=== PATIENT | male | born 1960 | race Caucasian/White ===

== ENCOUNTER 2017-02-13 17:25 | Emergency (ER) | payer MEDICAID, OTHER ==
--- NOTE | 2017-02-13 20:33 | RAD ---
Indication: Headaches, hemorrhage. CT of the brain was performed without IV contrast. Ventricular structures are midline. No midline shift is noted. The extraction spaces are unremarkable. There is no evidence of intracranial mass or hemorrhage. No other high or low density lesions are identified. Prominent sella turcica is noted which is unchanged from prior exam. IMPRESSION: No intracranial mass or hemorrhage is noted.
[2017-02-13 20:54] LABS: Hematocrit 35 % (42-52); Hemoglobin 11.6 g/dl (14.0-18.0); Mean Corpuscular HGB Conc 34 g/dl (31-36); Mean Corpuscular Hemoglobin 30 pg (27-31); Mean Corpuscular Volume 88 fL (80-94); Mean Platelet Volume 9 um3 (7.4-10.4); Red Blood Count 3.94 10^6/ul (4.0-5.4); Red Cell Distribution Width 13 % (10.5-15); White Blood Count 7.9 10^3/ul (3.5-10.8)
[2017-02-13] MEDS ORDERED: Ketorolac INJ* 30 MG/ML 1 ML VIAL IV PUSH ONE (21:03)
[2017-02-13] MEDS ORDERED: NS 0.9% 1000 ML* 1,000 ML IV ONE (21:03)
[2017-02-13] MEDS ORDERED: Metoclopramide IV* 5 MG/ML 2 ML VIAL IV ONE (21:03)
[2017-02-13] MEDS ORDERED: diPHENhydraMINE IV* 50 MG/ML 1 ml VIAL (BENADRYL) IV ONE (21:04)
--- NOTE | 2017-02-13 21:05 | ED ---
Teri John Alfonso, scribed for Walt Finn MD on 02/13/17 at 1943 . Headache - HPI Summary HPI Summary: This patient is a 56 year old M presenting to [facility] with a chief complaint of headache since two days ago. The headache is worse as of today. He states it feels like someone is standing on my noggin. The patient rates the pain 10/10 in severity. Symptoms aggravated by bright light. Symptoms alleviated by nothing. Patient reports photophobia, chills, sinus congestion, nausea, and tiredness. Patient denies occipital pain, neck pain, fever, slurred speech, and weakness. PMHx of anemia and asthma. Pt offered IV fluids, analgesia, and antiemetic, but he denied. - History Of Current Complaint Chief Complaint: EDHeadache Stated Complaint: HEADACHE/TIRED/CONFUSION Time Seen by Provider: 02/13/17 19:38 Hx Obtained From: Patient Onset/Duration: Sudden Onset, Started days ago - 2, Still Present Initially Headache Was: Moderate Currently Pain Is: Current Pain Scale(0-10)= - 10/10, Severe Timing: Constant, Days - 2 Character: Pressure - it feels like someone is standing on my noggin. Aggravating Factor: Bright Lights Allevating Factors: Nothing Associated Signs And Symptoms: Other (Noted In Comments) - Patient reports photophobia, chills, sinus congestion, nausea, and tiredness. Patient denies occipital pain, neck pain, fever, slurred speech, and weakness. - Allergies/Home Medications Allergies/Adverse Reactions: Allergies Allergy/AdvReac Type Severity Reaction Status Date / Time No Known Allergies Allergy Verified 02/13/17 17:29 PMH/Surg Hx/FS Hx/Imm Hx Endocrine/Hematology History: Reports: Hx Anemia Denies: Hx Diabetes, Hx Systemic Lupus Erythematosus Cardiovascular History: Denies: Hx Congestive Heart Failure, Hx Hypertension, Hx Pacemaker/ICD Respiratory History: Reports: Hx Asthma - CHRONIC BRONCHITIS History: Denies: Hx Dialysis, Hx Renal Disease Musculoskeletal History: Denies: Hx Rheumatoid Arthritis Sensory History: Denies: Hx Hearing Aid Psychiatric History: Denies: Hx Panic Disorder - Cancer History Hx Chemotherapy: No - Surgical History Surgery Procedure, Year, and Place: T&A Infectious Disease History: No Infectious Disease History: Denies: Traveled Outside the [place] in Last 30 Days - Family History Known Family History: Positive: Diabetes - Sister - Social History Alcohol Use: None Hx Substance Use: No Substance Use Type: Reports: None Hx Tobacco Use: No Smoking Status (MU): Never Smoked Tobacco Review of Systems Positive: Chills. Negative: Fever Positive: Photophobia, Other - Negative occipital pain Positive: Other - sinus congestion Positive: Nausea Positive: Other - Negative neck pain Neurological: Other - tiredness, headache; slurred speech, and weakness All Other Systems Reviewed And Are Negative: Yes Physical Exam - Summary Physical Exam Summary: The patient is well-nourished in no acute distress and in no acute pain. The skin is warm and dry and skin color reflects adequate perfusion. HEENT: The head is normocephalic and atraumatic. The pupils are equal and reactive. The conjunctivae are clear and without drainage. Photophobic. Nares are patent and without drainage. No sinus tenderness to percussion. The external ears are intact. The ear canals are patent and without drainage. The tympanic membranes are intact. Neck is supple with full range of motion and non-tender. There are no carotid bruits. There is no neck vein distension. Neck pain with flection at C7-T1. No nuchal rigidity. Respiratory: Chest is non-tender. Lungs are clear to auscultation and breath sounds are symmetrical and equal. Cardiovascular: Heart is regular rate and rhythm. There is no murmur or rub auscultated. Pulses are symmetrical and equal. Abdomen: The abdomen is soft and non-tender. There are normal bowel sounds heard in all four quadrants and there is no organomegaly palpated. Musculoskeletal: There is no back pain noted. Extremities are non-tender with full range of motion. There is good capillary refill. There is no peripheral edema or calf tenderness elicited. Neurological: Patient is alert and oriented to person, place and time. The patient has symmetrical motor strength in all four extremities. Cranial nerves are grossly intact. Deep tendon reflexes are symmetrical and equal in all four extremities. Symmetrical motor strength. Psychiatric: The patient has an appropriate affect and does not exhibit any anxiety or depression. Triage Information Reviewed: Yes Vital Signs On Initial Exam: Initial Vitals Temp Pulse Resp BP Pulse Ox 97.8 F 65 16 121/77 96 02/13/17 17:29 02/13/17 17:29 02/13/17 17:29 02/13/17 17:29 02/13/17 17:29 Vital Signs Reviewed: Yes - [place] Coma Scale Coma Scale Total: 15 Diagnostics - Vital Signs Vital Signs Temp Pulse Resp BP Pulse Ox 02/13/17 19:00 63 106/62 94 02/13/17 18:30 64 104/65 96 02/13/17 18:00 61 112/76 96 02/13/17 17:53 97.8 F 65 16 121/77 96 02/13/17 17:43 64 96 02/13/17 17:41 124/75 02/13/17 17:29 97.8 F 65 16 121/77 96 - Laboratory Lab Results: Lab Results 02/13/17 02/13/17 Range/Units 20:37 20:37 WBC 7.9 (3.5-10.8) 10^3/ul RBC 3.94 L (4.0-5.4) 10^6/ul Hgb 11.6 L (14.0-18.0) g/dl Hct 35 L (42-52) % MCV 88 (80-94) fL MCH 30 (27-31) pg MCHC 34 (31-36) g/dl RDW 13 (10.5-15) % Plt Count 244 (150-450) 10^3/ul MPV 9 (7.4-10.4) um3 Neut % (Auto) 51.7 (38-83) % Lymph % (Auto) 28.9 (25-47) % [place] % (Auto) 6.5 (1-9) % Eos % (Auto) 10.8 H (0-6) % Baso % (Auto) 2.1 H (0-2) % Absolute Neuts (auto) 4.1 (1.5-7.7) 10^3/ul Absolute Lymphs (auto) 2.3 (1.0-4.8) 10^3/ul Absolute Monos (auto) 0.5 (0-0.8) 10^3/ul Absolute Eos (auto) 0.9 H (0-0.6) 10^3/ul Absolute Basos (auto) 0.2 (0-0.2) 10^3/ul Absolute Nucleated RBC 0 10^3/ul Nucleated RBC % 0 INR (Anticoag Therapy) 0.94 (0.89-1.11) Result Diagrams: 02/13/17 20:37 Lab Statement: Any lab studies that have been ordered have been reviewed, and results considered in the medical decision making process. - CT Brain CT Interpretation Completed By: Radiologist - No intracranial mass or hemorrhage is noted. ED physician has reviewed this radiology report and agrees. Re-Evaluation - Re-Evaluation First Eval Re-Evaluation Time: 20:54 Comment: Pt still has a headache. He still declines medication. Brad CT results reviewed with the patient. Second Eval Re-Evaluation Time: 21:01 Comment: Patient now states he would like IV fluids and medication. Headache Course/Dx - Course Assessment/Plan: This patient is a 56 year old M presenting to [facility] with a chief complaint of headache since two days ago. The headache is worse as of today. He states it feels like someone is standing on my noggin. The patient rates the pain 10/10 in severity. Symptoms aggravated by bright light. Symptoms alleviated by nothing. Patient reports photophobia, chills, sinus congestion, nausea, and tiredness. Patient denies occipital pain, neck pain, fever, slurred speech, and weakness. PMHx of anemia and asthma. Pt offered IV fluids, analgesia , and antiemetic, but he denied. CT Brain reveals No intracranial mass or hemorrhage is noted. ED physician has reviewed this radiology report and agrees. Patient will be discharged with follow up from PCP. The patient is agreeable with this plan. - Diagnoses Differential Diagnosis/HQI/PQRI: Migraine, Subarachnoid Hemorrhage, Tension Headache Provider Diagnoses: Headache Discharge - Discharge Plan Condition: Stable Disposition: HOME Patient Education Materials: Acute Headache (ED) Referrals: [facility] PHYSICIAN REFERRAL [Outside] - 3 Days The documentation as recorded by the Teri hewitt Alfonso accurately reflects the service I personally performed and the decisions made by me, Walt Finn MD.
[2017-02-13 21:06] LABS: BUN/Creatinine Ratio 22.9 (8-20); Calcium 9.1 mg/dL (8.6-10.3); EGFR Non-African American 81.6 (>60); Globulin 2.8 g/dL (2-4); Potassium 4.1 mmol/L (3.5-5.0); Total Bilirubin 0.6 mg/dL (0.2-1.0); Total Protein 6.8 g/dL (6.4-8.9)
[2017-02-14 01:50] VITALS: BP 96/54
== END 2017-02-14 01:50 | disposition home or self-care (01) ==
LOC: ED 17:25
DX: R51 Headache (principal); J44.9 Chronic obstructive pulmonary disease, unspecified
CPT/HCPCS: 36415; 70450; 80053; 82607; 83605; 85025; 85610; 96360; 96374; 96375; 99283; J1200; J1885; J2765

== ENCOUNTER 2017-08-07 14:27 | Emergency (ER) | payer MEDICAID ==
[2017-08-07] MEDS ORDERED: PROCHLORPERAZINE INJ 5 MG/ML 2 ML VIAL IV ONE (14:56)
[2017-08-07] MEDS ORDERED: diPHENhydraMINE IV* 50 MG/ML 1 ml VIAL (BENADRYL) IV ONE (14:56)
[2017-08-07] MEDS ORDERED: NS 0.9% 1000 ML* 2,000 ML IV ONE (14:56)
--- NOTE | 2017-08-07 15:13 | ED ---
Influenza-Like Illness - HPI Summary HPI Summary: 57-year-old male presents with fatigue, headache, and generalized abdominal pain for the past couple days. He stated started after he exposed to mold. He states this is not the worst headache of his life. He states it is a generalized headache. He has not taken anything for his headache. He states he has been really nauseous and has been vomiting. He has not been able to keep anything down. He admits to shortness of breath and a cough. He denies any chest pain. He admits to sinus congestion but denies any sore throat. He states he feels very weak. He states he has never had this before. He has history of chronic bronchitis. He states his illness is making the chronic bronchitis worse. He has not taken anything for symptoms. He denies any diarrhea. He denies any one else being sick. He states he had concussion three years ago that has persisted. He does not have a primary. - History of Current Complaint Chief Complaint: EDGeneral Time Seen by Provider: 08/07/17 14:34 - Allergy/Home Medications Allergies/Adverse Reactions: Allergies Allergy/AdvReac Type Severity Reaction Status Date / Time No Known Allergies Allergy Verified 02/13/17 17:29 PMH/Surg Hx/FS Hx/Imm Hx Endocrine/Hematology History: Reports: Hx Anemia Denies: Hx Diabetes, Hx Systemic Lupus Erythematosus Cardiovascular History: Denies: Hx Congestive Heart Failure, Hx Hypertension, Hx Pacemaker/ICD Respiratory History: Reports: Hx Asthma - CHRONIC BRONCHITIS History: Denies: Hx Dialysis, Hx Renal Disease Musculoskeletal History: Denies: Hx Rheumatoid Arthritis Sensory History: Denies: Hx Hearing Aid Psychiatric History: Denies: Hx Panic Disorder - Cancer History Hx Chemotherapy: No - Surgical History Surgery Procedure, Year, and Place: T&A Infectious Disease History: No Infectious Disease History: Denies: Traveled Outside the [place] in Last 30 Days - Family History Known Family History: Positive: None, Diabetes - Sister Family History: R & n/C - Social History Alcohol Use: None Hx Substance Use: No Substance Use Type: Reports: None Hx Tobacco Use: No Smoking Status (MU): Never Smoked Tobacco Review of Systems Positive: Chills, Fatigue. Negative: Fever Negative: Chest Pain Positive: Shortness Of Breath, Cough Positive: Abdominal Pain, Vomiting, Nausea. Negative: Diarrhea Positive: Headache All Other Systems Reviewed And Are Negative: Yes Physical Exam Triage Information Reviewed: Yes Vital Signs On Initial Exam: Initial Vitals Temp Pulse Resp BP Pulse Ox 97 F 67 18 120/70 95 08/07/17 14:31 08/07/17 14:31 08/07/17 14:31 08/07/17 14:31 08/07/17 14:31 Vital Signs Reviewed: Yes Appearance: Positive: Well-Appearing Skin: Positive: Warm, Dry Head/Face: Positive: Normal Head/Face Inspection Eyes: Positive: Normal, EOMI, ARETHA, Conjunctiva Clear ENT: Positive: Normal ENT inspection, Pharynx normal, TMs normal Neck: Negative: Nuchal Rigidity Respiratory/Lung Sounds: Positive: Clear to Auscultation, Breath Sounds Present Cardiovascular: Positive: Normal, RRR Abdomen Description: Positive: Soft, Other: - moderate diffuse tenderness Bowel Sounds: Positive: Present Musculoskeletal: Positive: Normal Neurological: Positive: Sensory/Motor Intact, Alert, Oriented to Person Place, Time, CN Intact II-III - [place] Coma Scale Best Eye Response: 4 - Spontaneous Best Motor Response: 6 - Obeys Commands Best Verbal Response: 5 - Oriented Coma Scale Total: 15 Diagnostics - Vital Signs Vital Signs Temp Pulse Resp BP Pulse Ox 08/07/17 14:31 97 F 67 18 120/70 95 - Laboratory Lab Results: Lab Results 08/07/17 Range/Units 14:48 Influenza A (Rapid) Negative (Negative) Influenza B (Rapid) Negative (Negative) Result Diagrams: 08/07/17 15:06 08/07/17 15:06 Lab Statement: Any lab studies that have been ordered have been reviewed, and results considered in the medical decision making process. - Radiology chest Xray Interpretation: Positive (See Comments) - IMPRESSION: SMALL RIGHT UPPER LOBE INFILTRATE, RECOMMEND FOLLOW-UP CHEST X-RAYS TO RESOLUTION. Radiology Interpretation Completed By: Radiologist - CT brain CT Interpretation: Positive (See Comments) - 1. No acute intracranial abnormalities. 2. There is a slow-growing mixed attenuation mostly fat density mass at the pituitary gland. 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 This mass has been present since at least the October 13, 2014 CT the brain. More complete characterization can be made with contrast- enhanced MRI of the brain on a nonemergent basis. CT Interpretation Completed By: Radiologist - EKG No standard instances Cardiac Rate: NL EKG Rhythm: Sinus Rhythm ST Segment: Normal EKG Interpretation: sinus rhythmn EKG Comparison: No Significant Change Re-Evaluation - Re-Evaluation First Eval Re-Evaluation Time: 17:14 Change: Unchanged Comment: still has headache but nausea better Second Eval Re-Evaluation Time: 17:30 Change: Improved Comment: feeling better and would like to go home Flu Symptom Course/Dx - Course Course Of Treatment: 57-year-old male presents with fatigue, headache, and generalized abdominal pain for the past couple days. He stated started after he exposed to mold. He states this is not the worst headache of his life. He states it is a generalized headache. He has not taken anything for his headache. He states he has been really nauseous and has been vomiting. He has not been able to keep anything down. He admits to shortness of breath and a cough. He denies any chest pain. He admits to sinus congestion but denies any sore throat. He states he feels very weak. He states he has never had this before. He has history of chronic bronchitis. He states his illness is making the chronic bronchitis worse. On exam normal neuro exam. Lungs clear to auscultation. Moderate tenderness diffusely on abdomen. Patient appears ill. Flu negative. White blood cell count normal. EKG normal. troponin neg. bnp neg. crp normal. Chest x-ray shows infiltrate. Brain CT shows slow-growing mass. Discussed case with Dr. Napier will have follow-up with oncology at does not have a primary. Will treat pneumonia with Levaquin. Will give nausea medication. patient feeling better. will discharge home as labs normal except Na which corrected with IV fluids. patient understand and agrees with plan. - Diagnoses Differential Diagnosis/HQI/PQRI: Positive: Influenza, Upper Respiratory Infection Provider Diagnoses: Headache, Vomiting, Abdominal pain, Pneumonia, Brain mass Discharge - Discharge Plan Condition: Good Disposition: HOME Prescriptions: Levofloxacin TAB* [Levaquin TAB*] 500 mg PO DAILY #6 tab Ondansetron ODT TAB* [Zofran 4 MG Odt TAB*] 4 mg PO Q6H PRN #16 tab.odt PRN Reason: Nausea Patient Education Materials: Pneumonia (ED) Referrals: Eddie Fortune MD [Medical Doctor] - [facility] [facility] REFERRAL [Outside] Additional Instructions: Take antibiotic once a day for 7 days Follow up with oncology about brain mass Take tyenlol for headache every 6 hours Use zofran every 6 hours for nausea Establish care with primary to follow up Return to ED if develop any new or worsening symptoms
[2017-08-07 15:20] LABS: ABS Basophils 0.1 10^3/ul (0-0.2); ABS Lymphocytes 1.4 10^3/ul (1.0-4.8); ABS Monocytes 0.5 10^3/ul (0-0.8); ABS Neutrophils 4.5 10^3/ul (1.5-7.7); ABS Nucleated RBC 0 10^3/ul; Hematocrit 37 % (42-52); Hemoglobin 12.7 g/dl (14.0-18.0); Lymphocyte % 18.7 % (25-47); Mean Corpuscular HGB Conc 34 g/dl (31-36); Mean Corpuscular Hemoglobin 30 pg (27-31); Mean Corpuscular Volume 86 fL (80-94); Mean Platelet Volume 9 um3 (7.4-10.4); Nucleated Red Blood Cells % 0.1; Platelet Count 237 10^3/ul (150-450); Red Cell Distribution Width 14 % (10.5-15); White Blood Count 7.4 10^3/ul (3.5-10.8)
[2017-08-07 15:36] LABS: EGFR Non-African American 82.3 (>60)
--- NOTE | 2017-08-07 16:27 | RAD ---
INDICATION: Shortness of breath. COMPARISON: Comparison is made with a prior study from September 10, 2015. TECHNIQUE: Dual-energy PA and lateral views of the chest were obtained. FINDINGS: The heart is within normal limits in size. Mediastinal and hilar contours appear within normal limits. There is a small patchy right upper lobe infiltrate. The lungs are otherwise clear. No pleural effusion is seen. IMPRESSION: SMALL RIGHT UPPER LOBE INFILTRATE, RECOMMEND FOLLOW-UP CHEST X-RAYS TO RESOLUTION.
[2017-08-07] MEDS ORDERED: Levofloxacin TAB* 500 MG PO ONE (16:32)
--- NOTE | 2017-08-07 16:33 | RAD ---
INDICATION: Headache and flulike symptoms COMPARISON: Most recent CT the brain February 13, [address] of the brain is October 13, 2014 TECHNIQUE: Contiguous axial sections of the brain were obtained from the skull base to the vertex without contrast. FINDINGS: The ventricles, cisterns and sulci are within normal limits. At the sella turcica at the expected location of the pituitary gland there is a mixed attenuation mass measuring 1.9 x 2.3 cm in the axial plane (image 7) and up to 2.4 cm in the cephalocaudal dimension (sagittal image 38). On the sagittal plane images much of the anterior aspect of the mass is low density consistent with fat. There is thinning and expansion of the surrounding sella turcica indicating slow growth. On the October 13, 2014 CT examination this mass measured 1.6 x 2 cm in the axial plane. The boswell-white matter differentiation is adequately maintained and there is no sulcal effacement. No significant focal abnormality or mass effect is present. There is no evidence for intracranial hemorrhage. No significant focal osseous abnormality is present. The visualized portion of the paranasal sinuses appear clear. The mastoid air cells are well aerated bilaterally. IMPRESSION: 1. No acute intracranial abnormalities. 2. There is a slow-growing mixed attenuation mostly fat density mass at the pituitary gland. 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 This mass has been present since at least the October 13, 2014 CT the brain. More complete characterization can be made with contrast-enhanced MRI of the brain on a nonemergent basis. Findings discussed with Dr. Napier over the telephone at 1629 hours on August 07, 2017.
[2017-08-07] MEDS ORDERED: Ketorolac INJ* 30 MG/ML 1 ML VIAL IV PUSH ONE (16:58)
[2017-08-07 17:15] LABS: Urine Appearance Clear; Urine Blood Negative (Negative); Urine Color Yellow; Urine Ketones 1+ (Negative); Urine Protein Negative (Negative); Urine Specific Gravity 1.012 (1.010-1.030); Urine Urobilinogen Negative (Negative)
[2017-08-07 17:51] VITALS: BP 128/80
== END 2017-08-07 18:00 | disposition home or self-care (01) ==
LOC: ED 14:27
DX: J18.9 Pneumonia, unspecified organism (principal); G93.9 Disorder of brain, unspecified; R51 Headache; R11.10 Vomiting, unspecified; R10.9 Unspecified abdominal pain
CPT/HCPCS: 36415; 70450; 71046; 80053; 81003; 83605; 83690; 83735; 83880; 84484; 85025; 86141; 87502; 93005; 96374; 96375; 99283; J0780; J1200; J1885

== ENCOUNTER 2017-08-14 17:45 | Emergency (ER) | payer MEDICAID ==
[2017-08-14] MEDS ORDERED: Metoclopramide IV* 5 MG/ML 2 ML VIAL IV SLOW PU ONE (23:24)
[2017-08-14] MEDS ORDERED: diPHENhydraMINE IV* 50 MG/ML 1 ml VIAL (BENADRYL) IV ONE (23:24)
[2017-08-14] MEDS ORDERED: Ketorolac INJ* 30 MG/ML 1 ML VIAL IV PUSH ONE (23:24)
[2017-08-14] MEDS ORDERED: NS 0.9% 1000 ML* 1,000 ML IV ONE (23:24)
--- NOTE | 2017-08-15 00:51 | ED ---
Garry John Angela, scribed for Sergio Whitmore MD on 08/14/17 at 2336 . Headache - HPI Summary HPI Summary: This pt is a 57 y/o male presenting to [facility] c/o headache today. Pt reports "I feel like someone is standing and dancing on my head." Pt notes he had the same symptoms one week ago, but states it is worse today. He describes his headache is located on top of his head. He reports vomiting, photophobia. Pt has not taken any pain medications today. He denies any PMHx. - History Of Current Complaint Chief Complaint: EDHeadache Stated Complaint: HEADACHE Time Seen by Provider: 08/14/17 23:12 Hx Obtained From: Patient Onset/Duration: Started hours ago, Still Present Location of Headache: Other: - top of head Aggravating Factor: Bright Lights Allevating Factors: Nothing Associated Signs And Symptoms: Nausea, Vomiting - Allergies/Home Medications Allergies/Adverse Reactions: Allergies Allergy/AdvReac Type Severity Reaction Status Date / Time No Known Allergies Allergy Verified 02/13/17 17:29 PMH/Surg Hx/FS Hx/Imm Hx Endocrine/Hematology History: Reports: Hx Anemia Denies: Hx Diabetes, Hx Systemic Lupus Erythematosus Cardiovascular History: Denies: Hx Congestive Heart Failure, Hx Hypertension, Hx Pacemaker/ICD Respiratory History: Reports: Hx Asthma - CHRONIC BRONCHITIS History: Denies: Hx Dialysis, Hx Renal Disease Musculoskeletal History: Denies: Hx Rheumatoid Arthritis Sensory History: Denies: Hx Hearing Aid Psychiatric History: Denies: Hx Panic Disorder - Cancer History Hx Chemotherapy: No - Surgical History Surgery Procedure, Year, and Place: T&A Infectious Disease History: No Infectious Disease History: Denies: Traveled Outside the [place] in Last 30 Days - Family History Known Family History: Positive: Diabetes - Sister - Social History Alcohol Use: None Hx Substance Use: No Substance Use Type: Reports: None Hx Tobacco Use: No Smoking Status (MU): Never Smoked Tobacco Review of Systems Negative: Fever, Chills Positive: Photophobia ENT: Negative Cardiovascular: Negative Respiratory: Negative Positive: Vomiting, Nausea Genitourinary: Negative Positive: Headache All Other Systems Reviewed And Are Negative: Yes Physical Exam - Summary Physical Exam Summary: VITAL SIGNS: Reviewed. GENERAL: Patient is a well-developed and nourished male who is lying comfortable in the stretcher. Patient is not in any acute respiratory distress. HEAD AND FACE: No signs of trauma. No ecchymosis, hematomas or skull depressions. No sinus tenderness. EYES: PERRLA, EOMI x 2, No injected conjunctiva, no nystagmus. Pt has photophobia. EARS: Hearing grossly intact. Ear canals and tympanic membranes are within normal limits. MOUTH: Oropharynx within normal limits. NECK: Supple, trachea is midline, no adenopathy, no JVD, no carotid bruit, no c- spine tenderness, neck with full ROM. CHEST: Symmetric, no tenderness at palpation LUNGS: Clear to auscultation bilaterally. No wheezing or crackles. CVS: Regular rate and rhythm, S1 and S2 present, no murmurs or gallops appreciated. ABDOMEN: Soft, non-tender. No signs of distention. No rebound no guarding, and no masses palpated. Bowel sounds are normal. EXTREMITIES: FROM in all major joints, no edema, no cyanosis or clubbing. NEURO: Alert and oriented x 3. No acute neurological deficits. Speech is normal and follows commands. SKIN: Dry and warm Triage Information Reviewed: Yes Vital Signs On Initial Exam: Initial Vitals Temp Pulse Resp BP Pulse Ox 98.8 F 63 14 143/86 98 08/14/17 18:05 08/14/17 18:05 08/14/17 18:05 08/14/17 18:05 08/14/17 18:05 Vital Signs Reviewed: Yes Diagnostics - Vital Signs Vital Signs Temp Pulse Resp BP Pulse Ox 08/14/17 20:06 97.3 F 55 16 152/82 97 08/14/17 18:05 98.8 F 63 14 143/86 98 - Laboratory Lab Statement: Any lab studies that have been ordered have been reviewed, and results considered in the medical decision making process. Re-Evaluation - Re-Evaluation First Eval Re-Evaluation Time: 00:46 Comment: Pt reports he feels better. Headache Course/Dx - Course Course Of Treatment: Pt is a 57 y/o male who presents with headache today. In the ED course the pt was given IV fluids, benadryl, Reglan, Toradol. Pt reports he feels better. Therefore he will be discharged home with follow up from his PCP. He is instructed to return to the ED for any worsening symptoms. - Diagnoses Provider Diagnoses: Headache Discharge - Discharge Plan Condition: Stable Disposition: HOME Patient Education Materials: Acute Headache (ED) Referrals: [facility] PHYSICIAN REFERRAL [Outside] - 3 Days No Primary Care Phys,NOPCP [Primary Care Provider] - Additional Instructions: Please follow up with your primary care provider. RETURN TO EMERGENCY DEPARTMENT FOR ANY NEW OR WORSENING SYMPTOMS. The documentation as recorded by the Garry hewitt Angela accurately reflects the service I personally performed and the decisions made by , Sergio Whitmore MD.
[2017-08-15 01:38] VITALS: BP 112/78
== END 2017-08-15 01:38 | disposition home or self-care (01) ==
LOC: ED 17:45
DX: R51 Headache (principal); R11.2 Nausea with vomiting, unspecified; H53.149 Visual discomfort, unspecified
CPT/HCPCS: 96374; 96375; 99283; J1200; J1885; J2765

== ENCOUNTER → 2017-08-29 11:20 | Emergency (ER) | payer MEDICAID ==
[~2017-08-29 11:20] MED LIST: ALBUTEROL 2 MG PO ONE; Albuterol HFA INHALER* 8 gm MDI INH ONE; predniSONE TAB* 20 MG PO ONE
[2017-08-29] MEDS: Albuterol/Ipratropium NEB.SOL* Albuterol 2.5 MG/Ipratropium 0.5 MG 3 ML INH SCH ×3 (12:27→13:46)
--- NOTE | 2017-08-29 12:55 | RAD ---
INDICATION: Shortness of breath and cough COMPARISON: Chest x-ray dated August 07, 2017 TECHNIQUE: PA and lateral views of the chest were obtained. FINDINGS: The heart and mediastinum are normal in size and contour. There are increased interstitial lung markings similar to the most recent August 07, 2017 chest x-ray. There are no new masses or lobar consolidation. There is no evidence of large pleural effusion. Visualized bones are normal for the patient's age. There is no radiographic evidence of free air beneath the diaphragm IMPRESSION: MILDLY INCREASED INTERSTITIAL LUNG MARKINGS UNCHANGED FROM THE PRIOR CHEST X-RAY COULD BE SEEN IN THE SETTING OF MILD PULMONARY EDEMA OR EARLY INTERSTITIAL LUNG DISEASE DEPENDING ON THE CLINICAL PRESENTATION.
[2017-08-29 13:02] LABS: ABS Basophils 0.2 10^3/ul (0-0.2); ABS Eosinophils 1.3 10^3/ul (0-0.6); ABS Lymphocytes 1.2 10^3/ul (1.0-4.8); ABS Monocytes 0.4 10^3/ul (0-0.8); ABS Neutrophils 6.6 10^3/ul (1.5-7.7); ABS Nucleated RBC 0 10^3/ul; Eosinophil % 13.6 % (0-6); Hematocrit 35 % (42-52); Hemoglobin 12.1 g/dl (14.0-18.0); Lymphocyte % 12.7 % (25-47); Mean Corpuscular HGB Conc 34 g/dl (31-36); Mean Corpuscular Hemoglobin 30 pg (27-31); Mean Corpuscular Volume 87 fL (80-94); Mean Platelet Volume 9 um3 (7.4-10.4); Nucleated Red Blood Cells % 0; Platelet Count 210 10^3/ul (150-450); Red Blood Count 4.09 10^6/ul (4.0-5.4); Red Cell Distribution Width 14 % (10.5-15); White Blood Count 9.6 10^3/ul (3.5-10.8)
[2017-08-29 13:09] LABS: EGFR Non-African American 84.4 (>60)
[2017-08-29 14:41] VITALS: BP 145/88
--- NOTE | 2017-08-31 07:47 | ED ---
Garry John Angela, scribed for Francisco Median MD on 08/29/17 at 1154 . Shortness of Breath - HPI Summary HPI Summary: This pt is a 57 y/o male presenting to [facility] via EMS c/o SOB for the past 2 days. Pt reports that he usually uses his albuterol inhaler at home but he ran out 2 days ago. He went to [facility] today to get a refill but notes he didn't have a prescription. Pt was picked up by EMS from [facility] pharmacy. He additionally notes fever, chills, and cough. PMHx includes chronic bronchitis, for which he usually takes inhalers at home. - History of Current Complaint Time Seen by Provider: 08/29/17 11:34 Hx Obtained From: Patient Onset/Duration: Lasting Days, Still Present Timing: Constant Current Severity: Severe Dyspnea At: Rest Aggrevating Factors: Nothing Alleviating Factors: EMS Tx, Other - albuterol inhaler Associated Signs & Symptoms: Cough (Nonproductive), Fever, Chills - Allergy/Home Medications Allergies/Adverse Reactions: Allergies Allergy/AdvReac Type Severity Reaction Status Date / Time No Known Allergies Allergy Verified 08/29/17 11:59 Home Medications: Home Medications Albuterol HFA INHALER* [Ventolin HFA Inhaler*] 1 puff INH Q4H PRN 08/29/17 [ History Confirmed 08/29/17] PMH/Surg Hx/FS Hx/Imm Hx Endocrine/Hematology History: Reports: Hx Anemia Denies: Hx Diabetes, Hx Systemic Lupus Erythematosus Cardiovascular History: Denies: Hx Congestive Heart Failure, Hx Hypertension, Hx Pacemaker/ICD Respiratory History: Reports: Hx Asthma - CHRONIC BRONCHITIS, Hx Chronic Bronchitis Denies: Hx Chronic Obstructive Pulmonary Disease (COPD) History: Denies: Hx Dialysis, Hx Renal Disease Musculoskeletal History: Denies: Hx Rheumatoid Arthritis Sensory History: Denies: Hx Hearing Aid Psychiatric History: Denies: Hx Panic Disorder - Cancer History Hx Chemotherapy: No - Surgical History Surgery Procedure, Year, and Place: T&A - Family History Known Family History: Positive: Diabetes - Sister - Social History Alcohol Use: None Hx Substance Use: No Substance Use Type: Reports: None Hx Tobacco Use: No Smoking Status (MU): Never Smoked Tobacco Review of Systems Positive: Fever, Chills ENT: Negative Negative: Chest Pain Positive: Shortness Of Breath, Cough Musculoskeletal: Negative Skin: Negative Neurological: Negative All Other Systems Reviewed And Are Negative: Yes Physical Exam - Summary Physical Exam Summary: VITAL SIGNS: Reviewed. GENERAL: Patient is a well-developed and nourished male who is lying comfortable in the stretcher. Patient is not in any acute respiratory distress. HEAD AND FACE: No signs of trauma. No ecchymosis, hematomas or skull depressions. No sinus tenderness. EYES: PERRLA, EOMI x 2, No injected conjunctiva, no nystagmus. EARS: Hearing grossly intact. Ear canals and tympanic membranes are within normal limits. MOUTH: Oropharynx within normal limits. NECK: Supple, trachea is midline, no adenopathy, no JVD, no carotid bruit, no c- spine tenderness, neck with full ROM. CHEST: Symmetric, no tenderness at palpation LUNGS: Bilateral wheezing. CVS: Regular rate and rhythm, S1 and S2 present, no murmurs or gallops appreciated. ABDOMEN: Soft, non-tender. No signs of distention. No rebound no guarding, and no masses palpated. Bowel sounds are normal. EXTREMITIES: FROM in all major joints, no edema, no cyanosis or clubbing. NEURO: Alert and oriented x 3. No acute neurological deficits. Speech is normal and follows commands. SKIN: Dry and warm Triage Information Reviewed: Yes Vital Signs On Initial Exam: Initial Vitals Temp Pulse Resp BP Pulse Ox 99.2 F 86 20 155/78 93 08/29/17 11:51 08/29/17 11:51 08/29/17 11:51 08/29/17 11:51 08/29/17 11:51 Vital Signs Reviewed: Yes Diagnostics - Vital Signs Vital Signs Temp Pulse Resp BP Pulse Ox 08/29/17 14:38 99.3 F 76 20 145/88 96 08/29/17 12:49 84 18 144/106 96 08/29/17 12:30 70 14 99 08/29/17 11:51 99.2 F 86 20 155/78 93 - Laboratory Lab Results: Lab Results 08/29/17 08/29/17 Range/Units 12:34 12:34 WBC 9.6 (3.5-10.8) 10^3/ul RBC 4.09 (4.0-5.4) 10^6/ul Hgb 12.1 L (14.0-18.0) g/dl Hct 35 L (42-52) % MCV 87 (80-94) fL MCH 30 (27-31) pg MCHC 34 (31-36) g/dl RDW 14 (10.5-15) % Plt Count 210 (150-450) 10^3/ul MPV 9 (7.4-10.4) um3 Neut % (Auto) 68.3 (38-83) % Lymph % (Auto) 12.7 L (25-47) % [place] % (Auto) 3.7 (0-7) % Eos % (Auto) 13.6 H (0-6) % Baso % (Auto) 1.7 (0-2) % Absolute Neuts (auto) 6.6 (1.5-7.7) 10^3/ul Absolute Lymphs (auto) 1.2 (1.0-4.8) 10^3/ul Absolute Monos (auto) 0.4 (0-0.8) 10^3/ul Absolute Eos (auto) 1.3 H (0-0.6) 10^3/ul Absolute Basos (auto) 0.2 (0-0.2) 10^3/ul Absolute Nucleated RBC 0 10^3/ul Nucleated RBC % 0 Sodium 129 L (133-145) mmol/L Potassium 3.7 (3.5-5.0) mmol/L Chloride 94 L (101-111) mmol/L Carbon Dioxide 29 (22-32) mmol/L Anion Gap 6 (2-11) mmol/L BUN 8 (6-24) mg/dL Creatinine 0.93 (0.67-1.17) mg/dL Est GFR ( Amer) 108.5 (>60) Est GFR (Non-Af Amer) 84.4 (>60) BUN/Creatinine Ratio 8.6 (8-20) Glucose 91 (70-100) mg/dL Calcium 9.1 (8.6-10.3) mg/dL Total Bilirubin 0.90 (0.2-1.0) mg/dL AST 30 (13-39) U/L ALT 15 (7-52) U/L Alkaline Phosphatase 52 (34-104) U/L Troponin I 0.01 (<0.04) ng/mL C-Reactive Protein 2.05 (< 5.00) mg/L Total Protein 6.8 (6.4-8.9) g/dL Albumin 4.1 (3.2-5.2) g/dL Globulin 2.7 (2-4) g/dL Albumin/Globulin Ratio 1.5 (1-3) Result Diagrams: 08/29/17 12:34 08/29/17 12:34 Lab Statement: Any lab studies that have been ordered have been reviewed, and results considered in the medical decision making process. - Radiology Chest XR Xray Interpretation: Positive (See Comments) - IMPRESSION: Mildly increased interstitial lung markings unchanged from the prior chest x-ray could be seen in the setting of mild pulmonary edema or early interstitial lung disease depending on the clinical presentation. Dr. Medina has reviewed this radiology report. Radiology Interpretation Completed By: Radiologist - EKG 12:00 Cardiac Rate: NL EKG Rhythm: Sinus Rhythm - at 74 bpm EKG Interpretation: No ST elevations. Course/Dx - Course Assessment/Plan: This pt is a 57 y/o male presenting to [facility] via EMS c/o SOB for the past 2 days. Pt reports that he usually uses his albuterol inhaler at home but he ran out 2 days ago. He went to [facility] today to get a refill but notes he didn't have a prescription. Pt was picked up by EMS from [facility] pharmacy. He additionally notes fever, chills, and cough. PMHx includes chronic bronchitis, for which he usually takes inhalers at home. Test results without any significant abnormalities except for hemoglobin of 12.1 and hematocrit of 35. Chest XR: Mildly increased interstitial lung markings unchanged from the prior chest x-ray could be seen in the setting of mild pulmonary edema or early interstitial lung disease depending on the clinical presentation. In the ED course the pt was given two nebulizer treatments and his symptoms improved. Pt is saturing at 96% on room air and he reports feeling better. Therefore pt will be discharged to home with follow up from his PCP. He was given a prescription for prednisone. I discussed all the findings and test results with the patient. Patient was instructed to return to the emergency room immediately if any of the symptoms return or worsens. Plan of care was discussed with the patient and understands and agrees. All questions were answered at patient satisfaction. There were no further complaints or concerns. He is instructed to return to the ED for any worsening or new symptoms. Pt understands and agrees. Pt is hemodynamically stable, alert and oriented x3. - Diagnoses Differential Diagnosis/HQI/PQRI: Positive: Asthma, Bronchitis, CHF, Chest Wall Pain, COPD Exacerbation, Pneumonia Provider Diagnoses: COPD exacerbation Discharge - Discharge Plan Condition: Stable Disposition: HOME Prescriptions: predniSONE TAB* [Deltasone TAB*] 40 mg PO DAILY #8 tab Patient Education Materials: COPD (Chronic Obstructive Pulmonary Disease) (ED) Referrals: [facility] [place] [facility]ICIAN REFERRAL [Outside] Additional Instructions: Please follow up with your primary care provider. RETURN TO THE ED FOR ANY WORSENING SYMPTOMS. The documentation as recorded by the Garry hewitt Angela accurately reflects the service I personally performed and the decisions made by Adam lima Walter, MD.
== END | disposition home or self-care (01) ==
LOC: ED 11:20
DX: J44.1 Chronic obstructive pulmonary disease with (acute) exacerbation (principal); R05 Cough; R50.9 Fever, unspecified; R06.02 Shortness of breath
CPT/HCPCS: 36415; 71046; 80053; 84484; 85025; 86140; 93005; 94640; 99283; A9270-GY

== ENCOUNTER 2019-03-28 11:12 | Emergency (ER) | payer MEDICAID ==
[2019-03-28] MEDS ORDERED: Tetan/Diph/Pertus SYR(Tdap)* 0.5 ML SYR(BOOSTRIX) use SYR contains LATEX IM ONE (11:41)
--- NOTE | 2019-03-28 11:48 | ED ---
Laceration/Wound HPI - HPI Summary HPI Summary: 59 year old male reports to [facility] with a complaint of a puncture wound on the bottom of his right foot secondary to stepping on a rene screw yesterday. He reports that the screw broke through his sneaker and broke his skin on the bottom of his foot, going in about .25 inches deep. Patient says wound is sore. He has not received a tetanus booster recently. Patient refuses antibiotic treatment. - History of Current Complaint Stated Complaint: STEPPED ON A RENE SCREW PER PT Time Seen by Provider: 03/28/19 11:36 Hx Obtained From: Patient Mechanism of Injury: Sharp/Blunt Trauma Onset/Duration: Sudden Onset, Still Present Aggravating: Nothing Alleviating: Nothing Onset Severity: Mild Current Severity: Mild Pain Intensity: 2 Pain Scale Used: 0-10 Numeric Associated Signs & Symptoms: Pain - Allergy/Home Medications Allergies/Adverse Reactions: Allergies Allergy/AdvReac Type Severity Reaction Status Date / Time No Known Allergies Allergy Verified 09/13/17 13:47 PMH/Surg Hx/FS Hx/Imm Hx Previously Healthy: Yes Endocrine/Hematology History: Reports: Hx Anemia Denies: Hx Diabetes, Hx Systemic Lupus Erythematosus Cardiovascular History: Denies: Hx Congestive Heart Failure, Hx Hypertension, Hx Pacemaker/ICD Respiratory History: Reports: Hx Asthma - CHRONIC BRONCHITIS, Hx Chronic Bronchitis Denies: Hx Chronic Obstructive Pulmonary Disease (COPD) History: Denies: Hx Dialysis, Hx Renal Disease Musculoskeletal History: Denies: Hx Rheumatoid Arthritis Sensory History: Denies: Hx Hearing Aid Psychiatric History: Denies: Hx Panic Disorder - Cancer History Hx Chemotherapy: No - Surgical History Surgery Procedure, Year, and Place: TONSILS Infectious Disease History: No Infectious Disease History: Denies: Traveled Outside the [place] in Last 30 Days - Family History Known Family History: Positive: None, Diabetes - Sister Family History: R & n/C - Social History Alcohol Use: None Hx Substance Use: No Substance Use Type: Reports: None Hx Tobacco Use: No Smoking Status (MU): Never Smoked Tobacco Review of Systems Negative: Fever Positive: Other - puncture wound on right foot. All Other Systems Reviewed And Are Negative: Yes Physical Exam - Summary Physical Exam Summary: VITAL SIGNS: Reviewed. GENERAL: Patient is a well-developed and nourished male who is lying comfortable in the stretcher. Patient is not in any acute respiratory distress. HEAD AND FACE: No signs of trauma. No ecchymosis, hematomas or skull depressions. No sinus tenderness. EYES: PERRLA, EOMI x 2, No injected conjunctiva, no nystagmus. EARS: Hearing grossly intact. Ear canals and tympanic membranes are within normal limits. MOUTH: Oropharynx within normal limits. NECK: Supple, trachea is midline, no adenopathy, no JVD, no carotid bruit, no c- spine tenderness, neck with full ROM. CHEST: Symmetric, no tenderness at palpation. LUNGS: Clear to auscultation bilaterally. No wheezing or crackles. CVS: Regular rate and rhythm, S1 and S2 present, no murmurs or gallops appreciated. ABDOMEN: Soft, non-tender. No signs of distention. No rebound, no guarding, and no masses palpated. Bowel sounds are normal. EXTREMITIES: FROM in all major joints, no edema, no cyanosis or clubbing. Puncture wound in right heal. No associated edema. Not erythematous. No tenderness. NEURO: Alert and oriented x 3. No acute neurological deficits. Speech is normal and follows commands. SKIN: Dry and warm. Triage Information Reviewed: Yes Vital Signs On Initial Exam: Initial Vitals Temp Pulse Resp BP Pulse Ox 98.8 F 69 16 139/90 97 03/28/19 11:13 03/28/19 11:13 03/28/19 11:13 03/28/19 11:13 03/28/19 11:13 Vital Signs Reviewed: Yes Procedures - Sedation Patient Received Moderate/Deep Sedation with Procedure: No Diagnostics - Vital Signs Vital Signs Temp Pulse Resp BP Pulse Ox 03/28/19 11:13 98.8 F 69 16 139/90 97 - Laboratory Lab Statement: Any lab studies that have been ordered have been reviewed, and results considered in the medical decision making process. Laceration Repair Course/Dx - Course Assessment/Plan: Physical exam the patient has a puncture wound in the right heel. I recommended antibiotics and tetanus vaccine. Patient refuses antibiotics, he agreed for the tetanus vaccine. Patient understands risk of infection however the patient refused antibiotics. Therefore the patient received a Boostrix and discharged home with follow-up with PCP. I discussed all the findings and test results with the patient. Patient was instructed to return to the emergency room immediately if any of the symptoms return or worsen. Plan of care was discussed with the patient and he understands and agrees. All questions were answered at patient satisfaction. There were no further complaints or concerns. Lung exam before discharge: CTA B/L. Good air exchange. No wheezing or crackles heard. CVS: S1 and S2 present. No murmurs appreciated. Patient is alert and oriented x 3. Patient is hemodynamically stable. Patient will be discharged home with follow up PCP in the next 2-3 days - Clinical Impression Provider Diagnoses: Puncture wound Discharge ED - Sign-Out/Discharge Documenting (check all that apply): Patient Departure - home - Discharge Plan Condition: Stable Disposition: HOME Patient Education Materials: Puncture Wound (ED) Referrals: Eddie Fortune MD [Primary Care Provider] - Additional Instructions: Follow up with your primary care provider in 2-3 days. Return to the ED with new or worsening symptoms. - Billing Disposition and Condition Condition: STABLE Disposition: Home - Attestation Statements Document Initiated by Merrillibe: Yes Documenting Scribe: Heriberto Infante Provider For Whom Christelle is Documenting (Include Credential): Francisco Medina MD. Scribe Attestation: Heriberto John scribed for Francisco Medina MD. on 03/29/19 at 2126. Scribe Documentation Reviewed: Yes Provider Attestation: The documentation as recorded by the Heriberto hewitt accurately reflects the service I personally performed and the decisions made by Francisco lima MD. Status of Scribe Document: Viewed
[2019-03-28 12:38] VITALS: BP 131/79
== END 2019-03-28 11:50 | disposition home or self-care (01) ==
LOC: ED 11:12
DX: S91.331A Puncture wound without foreign body, right foot, initial encounter (principal); Z23 Encounter for immunization; W22.8XXA Striking against or struck by other objects, initial encounter; Y92.9 Unspecified place or not applicable; D64.9 Anemia, unspecified; J45.909 Unspecified asthma, uncomplicated
CPT/HCPCS: 90471; 90715; 99282